=== PATIENT | male | born 1985 | race Caucasian/White ===

== ENCOUNTER 2023-08-05 15:36 | Outpatient (REF) | payer OTHER, SELFPAY ==
--- NOTE | 2023-08-05 15:40 | EMG_ITS ---
Chief complaint: Right shoulder and neck pain with numbness, at least 1 year, denies symptoms on fingers/hand Reason for referral: Evaluate for radiculopathy Referred by: Helene HAGAN Procedure done: Right upper extremity NCS/EMG Precautions and/or limitations: None The limb temperature was monitored continuously and remained between 32-36 degrees C during the performance of the NCS. Nerve Conduction Studies Anti Sensory Summary Table ?Stim Site NR Onset (ms) Norm Onset (ms) Peak (ms) Norm Peak (ms) O-P Amp (?V) Norm O-P Amp Site1 Site2 Delta-0 (ms) Dist (cm) Armand (m/s) Norm Armand (m/s) Right Median Anti Sensory (2nd Digit) Wrist ? 2.2 3.0 <3.6 33.1 >10 Wrist 2nd Digit 2.2 14.0 64 Right Radial Anti Sensory (Thumb) Forearm ? 1.6 2.0 <3.1 7.0 Forearm Thumb 1.6 0.0 Right Ulnar Anti Sensory (5th Digit) Wrist ? 0.8 3.4 <3.7 16.2 >15.0 Wrist 5th Digit 0.8 14.0 175 Motor Summary Table ?Stim Site NR Onset (ms) Norm Onset (ms) O-P Amp (mV) Norm O-P Amp iAmp (mV) Amp (1st) (%) Site1 Site2 Delta-0 (ms) Dist (cm) Armand (m/s) Norm Armand (m/s) Right Median Motor (Abd Poll Brev) Wrist ? 3.1 <3.9 11.1 >4.5 12.4 100.0 Elbow Wrist 4.4 24.0 55 >45 Elbow ? 7.5 10.2 11.6 91.9 Right Ulnar Motor (Abd Dig Minimi) Wrist ? 2.7 <3.0 11.2 >5 13.8 100.0 B Elbow Wrist 3.9 22.0 56 >45 B Elbow ? 6.6 10.5 13.4 93.8 A Elbow B Elbow 1.6 10.0 63 >45 A Elbow ? 8.2 10.0 12.8 89.3 EMG ?Side Muscle Nerve Root Ins Act Fibs Psw Amp Dur Poly Recrt Int Pat Comment Right 1stDorInt Ulnar C8-T1 Nml Nml Nml Nml Nml 0 Nml Complete Right FlexCarRad Median C6-7 Nml Nml Nml Nml Nml 0 Reduced Complete Right Biceps Musculocut C5-6 Nml Nml Nml Nml Nml 0 Reduced Complete Right Triceps Radial C6-7-8 Nml Nml Nml Nml Nml 0 Nml Complete Right Deltoid Axillary C5-6 Nml Nml Nml Nml Nml 0 Reduced Complete Paraspinal EMG ?Side Muscle Nerve Root Ins Act Fibs Psw Comment Right Cervical Upper Rami Incr 1+ 1+ Right Cervical Mid Rami Incr 1+ 1+ Right Cervical Lower Rami Nml Nml Nml FINDINGS: All motor and sensory nerves tested showed normal latencies, amplitudes and conduction velocities. Concentric needle EMG was performed in selected muscles of the right upper extremity and cervical paraspinals. Study revealed Signs of electric abnormalities as shown in the table below. Right FCR, deltoids and biceps showed reduced recruitment. Right mid to lower cervical paraspinals showed increased insertional activity, PSWs and fibrillations. IMPRESSION: 1. This is an abnormal study. 2. There is electrodiagnostic evidence for right C5-6 cervical radiculopathy, subacute. 3. There is no electrodiagnostic evidence for median neuropathy, ulnar neuropathy, or brachial plexopathy. Thank you for your kind referral. Carissa Patiño MD, LAUREL Board Certified, [place] [employer] (ABPMR) Board Certified, [place] [employer] (ABEM) [place] [id number] [facility]
== END 2023-08-05 15:37 | disposition home or self-care (01) ==
LOC: HO.NEURO 15:36
PROVIDERS: Visit Provider Physician Assistant
DX: R20.0 Anesthesia of skin (principal)
CPT/HCPCS: 95886; 95909

== ENCOUNTER → 2023-08-05 15:40 | Outpatient (BNV) | payer OTHER, SELFPAY | PROVIDERS: Visit Provider Physical Medicine & Rehabilitation | DX: M50.122 Cervical disc disorder at C5-C6 level with radiculopathy (principal) | CPT/HCPCS: 95886; 95909 ==

== ENCOUNTER 2023-10-14 11:01 | Outpatient (RCR) | payer OTHER, SELFPAY | END 2023-10-14 11:08 | disposition home or self-care (01) | LOC: HO.PHPA 11:01 | PROVIDERS: Visit Provider Psychiatry & Neurology Psychiatry | DX: F32.A Depression, unspecified (principal); F41.9 Anxiety disorder, unspecified ==